=== PATIENT | female | born 1995 | race Native Hawaiian/Other Pacific Islander ===

== ENCOUNTER 2016-09-30 08:46 | Day surgery (SDC) | payer OTHER ==
[~2016-09-30] VITALS: Ht 30.5 cm; Wt 0.5 kg
== END 2016-09-30 13:45 | disposition home or self-care (01) ==
LOC: OR 08:46
PROC: 0FT44ZZ Resection of Gallbladder, Percutaneous Endoscopic Approach (ICD-10-PCS; principal; 2016-09-30)
DX: K80.10 Calculus of gallbladder with chronic cholecystitis without obstruction (principal); K82.8 Other specified diseases of gallbladder
CPT/HCPCS: J0330; J0690; J1170; J1885; J2001; J2250; J2405; J2704; J2710; J3010; J3490